=== PATIENT | male | born 1995 | race Caucasian/White ===

== ENCOUNTER → 2016-09-26 | Outpatient (CLI) | payer OTHER ==
[~2016-09-26] MED LIST: ACETAMINOPHEN325 MG GT; ACETAMINOPHEN650 M4 PEG; ACNE CLEANSING1 EACH TOP; ACNE CLEANSING1 EACH TP; ALBUTEROL MININEB NEB; ALL DAY ALLERGY10 M3 JT; ALLERCLEAR10 MG GT; AMOXICILLIN875 MG GT; AZULFIDINE GT; AZULFIDINE500 M1 GT; AZULFIDINE500 M1 PO; BACID GT; CETA-KLENZ SKI473 ML TP; CETAPHIL THERAP TOP; CLARITIN10 M2 GT; CLARITIN10 M2 PEG; CLARITIN10 M3 DOB; CLARITIN10 M3 GT; COMBIVENT U/D3 M1 INH; COUGH SYRU100 MG/5 M PO; EAC TOP; FLEET BISA10 MG/30 M PR; GABAPENTIN300 M2 GT; GABAPENTIN300 M2 PEG; GABAPENTIN300 MG PO; GAS-X125 MG PO; GENEBS325 MG GT; GERI-TUSSI100 MG/5 M GT; HYDROCODON-ACE1 EAC7 PEG; IPRAT-ALBUT 0.5-3 ML INH; IPRATR-ALBUTEROL3 ML INH; MEDIFIN EX100 MG/5 M PEG; MOBIC15 MG DOB; MONTELUKAST SOD10 MG GT; MONTELUKAST SOD10 MG JT; MONTELUKAST SOD10 MG PEG; NEURONTIN GT; NEURONTIN300 MG GT; NEURONTIN300 MG PEG; NON-ASPIRIN325 MG GT; OYSTER SHELL 501 TAB GT; OYSTER SHELL 501 TAB PEG; OYSTER SHELL 51 EACH JT; OYSTER SHELL 51 EACH PO; OYSTERCAL-D 501 EACH GT; POLYETHYLENE G527 GM PO; PROBIOTIC COMP1 EACH PEG; PROBIOTIC1 EACH GT; PROVENTIL INH0.5 ML NEB; PULMICORT0.5 MG/2 M INH; PULMICORT0.5 MG/21 INH; RISA-BID CAPLE1 EAC1 DOB; RISA-BID CAPLE1 EAC1 JT; RISA-BID CAPLE1 EAC1 PO; RISA-BID CAPLE1 EACH PO; RISAMINE OINTM113 GM TOP; ROBAFEN CF LIQ118 ML DOB; ROBAFEN100 MG/5 M PO; SINGULAIR GT; SOD BICARBONATE DOB; SULFAZINE500 M1 GT; TRAMADOL HCL50 M1 GT; TRAMADOL HCL50 M2 GT; TYL325 PO; ULTRAM PO; VICODIN 5/500 T1 TAB PO; VIOKACE 10,4401 EACH DOB; VITAMIN D 4001 UDTAB PO; VITAMIN D1000 UNI1 GT; VITAMIN D1000 UNI1 PEG; VITAMIN D1000 UNI2 GT; ZYRTEC10 M2 DOB; [UNRECOGNIZED DRUG - OTHER]; [UNRECOGNIZED DRUG - OTHER] TOP; [UNRECOGNIZED DRUG - SUPPLY] TOP
--- NOTE | ~2016-09-26 | XA176 ---
[facility] A Service of [facility] & [facility] RADIOLOGY TEXT RESULTS PATIENT: CARLOS MOREL LOCATION: [facility] : [birth year] UNIT #: [id number] AGE: [address]: Armen Adhikari MD SEX: M ORDER DR: [id number] [facility]. [place], [place] [address] [id number] O MR#: [id number] Acc #: [id number] NAME: CARLOS MOREL : 1995 SEX: M STUDY DATE/TIME: 09/26/2016 14:02 UNIT: [facility] ROOM: STUDY DESCRIPTION: XA Perc G-Tube to GJ-Tube Conv Attending Physician: Armen Adhikari Sr., M.D. Ordering Physician: Armen Adhikari Sr., M.D. Primary Care Physician: Rachel Irving Aprn MEDICAL IMAGING REPORT This report is preliminary unless electronic signature is present EXAM Gastrojejunostomy tube replacement. HISTORY Gastrojejunostomy tube fell out, was replaced with a gastrostomy tube. Replacement of the G-J tube was requested. FINDINGS Using fluoroscopic guidance, a combination of guidewires and catheter, the existing tube was removed, and a gastrojejunostomy tube was reinserted with its distal tip just beyond the ligament of Treitz. It was fixed to the skin. There were no complications, and contrast injection confirmed catheter position. A total of 5 overhead spot images were performed, and 5.7 minutes of fluoroscopy were utilized. IMPRESSION Successful reinsertion of a gastrojejunostomy tube. Distal catheter tip beyond the ligament of Treitz; confirmed fluoroscopically. Dictated by... Timmy Stewart M.D. THIS IS AN ELECTRONICALLY VERIFIED REPORT Timmy Stewart M.D. at 10/03/2016 5:09 PM KAY/lucia TD: 10/01/2016 09:17 JOB #: [id number] MEDICAL IMAGING REPORT [facility] A Service of [facility] & [facility] RADIOLOGY TEXT RESULTS PATIENT: CARLOS MOREL LOCATION: [facility] #: [id number] : [birth year] UNIT #: [id number] AGE: [address]: Armen Adhikari MD SEX: M ORDER DR: COPY
== END | disposition home or self-care (01) ==
LOC: CIVR 12:26
DX: Z93.1 Gastrostomy status (principal); F79 Unspecified intellectual disabilities; Z88.8 Allergy status to other drugs, medicaments and biological substances; J98.9 Respiratory disorder, unspecified
CPT/HCPCS: C1725; J2250; J3010; Q9967

== ENCOUNTER 2016-10-03 19:04 | Emergency (ER) | payer OTHER ==
[2016-10-03 17:27] LABS: BASOPHIL% 0.4 % (0-2.5); EOSINOPHIL# 0.1 X10e3 (0-0.7); EOSINOPHIL% 0.9 % (0.0-7.0); HEMATOCRIT 41.7 % (38.0-50.0); HEMOGLOBIN 13.5 gm/dL (13.0-16.0); LYMPHOCYTE# 1.7 X10e3 (1.0-3.5); LYMPHOCYTE% 30.7 % (17.0-45.0); MEAN CELL VOLUME 89.9 FL (83-96); MEAN CORPUSCULAR HEMOGLOBIN 29.1 PG (28-34); MEAN CORPUSCULAR HGB CONC 32.4 g/dL (30-36); MEAN PLATELET VOLUME 7.4 FL (6.5-11.5); MONOCYTE# 0.4 X10e3 (0-1.0); MONOCYTE% 7.1 % (3.0-12.0); NEUTROPHIL# 3.5 X10e3 (1.5-7.1); NEUTROPHIL% 60.9 % (40-75); PLATELET COUNT 270 X10e3 (140-420); RED BLOOD COUNT 4.64 X10e (3.90-5.60); RED CELL DISTRIBUTION WIDTH 13.8 % (11.0-15.5); WHITE BLOOD COUNT 5.7 X10e3 (4.0-10.5)
[2016-10-03 17:28] LABS: DIFF IND NO
[2016-10-03 17:59] LABS: ALKALINE PHOSPHATASE 94 U/L (32-92); ALT (SGPT) 33 U/L (10-40); AST (SGOT) 30 U/L (10-42); BILIRUBIN, DIRECT <0.1 mg/dL (0.0-0.2); BILIRUBIN,INDIRECT 0.3 mg/dL (0.0-0.9); BILIRUBIN,TOTAL 0.4 mg/dL (0.2-2.0); BLOOD UREA NITROGEN 23 mg/dL (9-23); CALCIUM SERUM 9.1 mg/dL (8.4-10.2); CARBON DIOXIDE 28 mmol/L (22-31); CHLORIDE 102 mmol/L (100-111); CREATININE SERUM 0.5 mg/dL (0.6-1.4); GLOM FILT RATE Estimated ABOVE60 mL/min (>60); GLUCOSE FASTING 86 mg/dL (70-110); LIPASE 49 U/L (22-51); PROTEIN TOTAL SERUM 7.1 g/dL (6.0-8.3); SODIUM 138 mmol/L (135-145)
[~2016-10-03 19:04] MED LIST changes: -ACNE CLEANSING1 EACH TOP; -ALBUTEROL MININEB NEB; -ALL DAY ALLERGY10 M3 JT; -AZULFIDINE500 M1 PO; -CETAPHIL THERAP TOP; -COMBIVENT U/D3 M1 INH; -EAC TOP; -FLEET BISA10 MG/30 M PR; -GABAPENTIN300 M2 GT; -GABAPENTIN300 MG PO; -GENEBS325 MG GT; -IPRATR-ALBUTEROL3 ML INH; -MONTELUKAST SOD10 MG JT; -OYSTER SHELL 51 EACH JT; -OYSTER SHELL 51 EACH PO; -OYSTERCAL-D 501 EACH GT; -PROVENTIL INH0.5 ML NEB; -PULMICORT0.5 MG/21 INH; -RISA-BID CAPLE1 EAC1 DOB; -RISA-BID CAPLE1 EAC1 JT; -RISA-BID CAPLE1 EACH PO; -RISAMINE OINTM113 GM TOP; -ROBAFEN CF LIQ118 ML DOB; -ROBAFEN100 MG/5 M PO; -SOD BICARBONATE DOB; -SULFAZINE500 M1 GT; -TYL325 PO; -VIOKACE 10,4401 EACH DOB; -ZYRTEC10 M2 DOB; -[UNRECOGNIZED DRUG - OTHER] TOP; -[UNRECOGNIZED DRUG - SUPPLY] TOP
[2016-10-03 19:37] LABS: URINE APPEARANCE CLOUDY; URINE BILIRUBIN NEG (NEG); URINE BLOOD NEG (NEG); URINE COLOR DK YELLOW; URINE GLUCOSE NEG (NEG); URINE KETONE NEG (NEG); URINE LEUKOCYTE ESTERASE TRACE (NEG); URINE NITRATE NEG (NEG); URINE PROTEIN NEG (NEG); URINE SPECIFIC GRAVITY 1.023 (1.003-1.035); URINE UROBILINOGEN 0.2 MG/DL (NEG)
[2016-10-03 19:40] LABS: CULTURE INDICATED? YES; URBCS1 AUWI 0-2 /[HPF] (0-2); URINE BACTERIA AUWI NEG (NEGATIVE); URINE SQUAMOUS EPITHELIAL CELL MANY /[HPF]
[2016-10-03 19:58] LABS: URINE SOURCE CATH
[2016-11-15] MEDS ORDERED: GABAPENTIN300 M2 GT (05:07)
[2016-11-15] MEDS ORDERED: MONTELUKAST SOD10 MG GT (05:08)
[2016-11-15] MEDS ORDERED: OYSTERCAL-D 501 EACH GT (05:09)
[2016-11-15] MEDS ORDERED: SULFAZINE500 M1 GT (05:11)
[2016-11-15] MEDS ORDERED: GENEBS325 MG GT (05:14)
[2016-11-15] MEDS ORDERED: ALBUTEROL MININEB NEB ×2 (05:16→05:17)
[2016-11-15] MEDS ORDERED: PULMICORT0.5 MG/2 M INH (05:17)
[2016-11-15] MEDS ORDERED: ACNE CLEANSING1 EACH TOP (07:58)
[2016-11-15] MEDS ORDERED: ZYRTEC10 M2 DOB (07:59)
[2016-11-15] MEDS ORDERED: RISA-BID CAPLE1 EAC1 DOB (08:00)
[2016-11-15] MEDS ORDERED: RISAMINE OINTM113 GM TOP (08:01)
[2016-11-15] MEDS ORDERED: SOD BICARBONATE DOB (08:02)
[2016-11-15] MEDS ORDERED: VIOKACE 10,4401 EACH DOB (08:04)
[2016-11-15] MEDS ORDERED: ROBAFEN CF LIQ118 ML DOB (08:05)
[2016-12-15] MEDS ORDERED: [UNRECOGNIZED DRUG - OTHER] TOP (10:11)
[2016-12-15] MEDS ORDERED: [UNRECOGNIZED DRUG - SUPPLY] TOP (10:12)
[2016-12-15] MEDS ORDERED: IPRATR-ALBUTEROL3 ML INH (10:12)
[2016-12-15] MEDS ORDERED: OYSTER SHELL 51 EACH PO (10:13)
[2016-12-15] MEDS ORDERED: RISA-BID CAPLE1 EACH PO (10:14)
[2016-12-15] MEDS ORDERED: PULMICORT0.5 MG/21 INH (10:14)
[2016-12-15] MEDS ORDERED: AZULFIDINE500 M1 PO (10:15)
[2016-12-15] MEDS ORDERED: PROVENTIL INH0.5 ML NEB (10:16)
[2017-04-14] MEDS ORDERED: TYL325 PO (15:34)
[2017-04-14] MEDS ORDERED: ALL DAY ALLERGY10 M3 JT (15:35)
[2017-04-14] MEDS ORDERED: GABAPENTIN300 MG PO (15:36)
[2017-04-14] MEDS ORDERED: MONTELUKAST SOD10 MG JT (15:37)
[2017-04-14] MEDS ORDERED: OYSTER SHELL 51 EACH JT (15:38)
[2017-04-14] MEDS ORDERED: RISA-BID CAPLE1 EAC1 JT (15:38)
[2017-04-14] MEDS ORDERED: EAC TOP (15:41)
[2017-04-14] MEDS ORDERED: CETAPHIL THERAP TOP (15:42)
[2017-04-14] MEDS ORDERED: ROBAFEN100 MG/5 M PO (15:43)
[2017-04-14] MEDS ORDERED: FLEET BISA10 MG/30 M PR (15:45)
[2017-04-14] MEDS ORDERED: COMBIVENT U/D3 M1 INH (15:47)
[2017-04-14] MEDS ORDERED: PULMICORT0.5 MG/21 INH (15:47)
== END 2016-10-03 21:10 | disposition home or self-care (01) ==
LOC: CED 19:04
PROVIDERS: Emergency Medicine
DX: R10.9 Unspecified abdominal pain (principal); Z79.2 Long term (current) use of antibiotics; Z79.899 Other long term (current) drug therapy; Z88.8 Allergy status to other drugs, medicaments and biological substances
CPT/HCPCS: 36415; 80048; 80076; 81003; 83690; 85025; 87086; 99284

== ENCOUNTER → 2016-11-15 | Outpatient (CLI) | payer OTHER ==
[~2016-11-15] MED LIST changes: +ACNE CLEANSING1 EACH TOP; +ALBUTEROL MININEB NEB; +ALL DAY ALLERGY10 M3 JT; +AZULFIDINE500 M1 PO; +CETAPHIL THERAP TOP; +COMBIVENT U/D3 M1 INH; +EAC TOP; +FLEET BISA10 MG/30 M PR; +GABAPENTIN300 M2 GT; +GABAPENTIN300 MG PO; +GENEBS325 MG GT; +IPRATR-ALBUTEROL3 ML INH; +MONTELUKAST SOD10 MG JT; +OYSTER SHELL 51 EACH JT; +OYSTER SHELL 51 EACH PO; +OYSTERCAL-D 501 EACH GT; +PROVENTIL INH0.5 ML NEB; +PULMICORT0.5 MG/21 INH; +RISA-BID CAPLE1 EAC1 DOB; +RISA-BID CAPLE1 EAC1 JT; +RISA-BID CAPLE1 EACH PO; +RISAMINE OINTM113 GM TOP; +ROBAFEN CF LIQ118 ML DOB; +ROBAFEN100 MG/5 M PO; +SOD BICARBONATE DOB; +SULFAZINE500 M1 GT; +TYL325 PO; +VANCOMYCIN750 MG/250 IV; +VIOKACE 10,4401 EACH DOB; +ZOSYN INJ; +ZYRTEC10 M2 DOB; +[UNRECOGNIZED DRUG - OTHER] TOP; +[UNRECOGNIZED DRUG - OTHER] TOP; +[UNRECOGNIZED DRUG - SUPPLY] TOP
--- NOTE | ~2016-11-15 | XA189 ---
[facility] A Service of [facility] RADIOLOGY TEXT RESULTS PATIENT: CARLOS MOREL LOCATION: [facility] : [birth year] UNIT #: [id number] AGE: [address]: RACIEL BLOCK APRN SEX: M ORDER DR: [id number] [facility] [address] [facility] [place], [place] [address] [id number] O MR#: [id number] Acc #: [id number] NAME: CARLOS MOREL : 1995 SEX: M STUDY DATE/TIME: 11/15/2016 10:26 UNIT: [facility] ROOM: STUDY DESCRIPTION: XA Replace GJ Tube Attending Physician: Raciel Block Aprn Ordering Physician: Raciel Block Aprn Primary Care Physician: Raciel Block Aprn MEDICAL IMAGING REPORT This report is preliminary unless electronic signature is present EXAM Gastrojejunostomy tube replacement with fluoroscopic guidance. HISTORY The existing tube has ruptured. TECHNIQUE Informed consent was obtained from the patient's software support representative. Using sterile technique and following the lubrication with K-Y jelly, the existing tube was withdrawn over a guidewire. An 0.035 hydrophilic glidewire was used. A new tube was placed over the wire. The gastrostomy site is directed toward the cardia of the stomach. With great difficulty, eventually the tube was directed into the duodenum and subsequently to a position near the ligament of Treitz. Total fluoroscopy time 38.6 minutes. Some oral contrast was administered throughout the procedure to guide placement. The balloon was inflated to 7 mL, and the tube was secured in place. The patient tolerated the procedure well. IMPRESSION Difficult gastrojejunostomy tube placement because of the angulation of the gastrostomy tube site relative to the duodenum. Eventually with great difficulty and a combination of multiple different wires, the tube was positioned with the tip near the ligament of Treitz. Dictated by... Harris Sosa M.D. THIS IS AN ELECTRONICALLY VERIFIED REPORT Harris Sosa M.D. at 11/15/2016 5:02 PM RLF/jaxon [facility]. [facility] A Service of [facility] RADIOLOGY TEXT RESULTS PATIENT: CARLOS MOREL LOCATION: [facility] #: [id number] : [birth year] UNIT #: [id number] AGE: [address]: RACIEL BLOCK APRN SEX: M ORDER DR: TD: 11/15/2016 16:58 JOB #: [id number] MEDICAL IMAGING REPORT Page 1 of 1 COPY
== END | disposition home or self-care (01) ==
LOC: CIVR 06:41
DX: K94.23 Gastrostomy malfunction (principal); F73 Profound intellectual disabilities; I35.1 Nonrheumatic aortic (valve) insufficiency; K51.90 Ulcerative colitis, unspecified, without complications; J41.1 Mucopurulent chronic bronchitis
CPT/HCPCS: 76000; J2250; J3010; Q9967

== ENCOUNTER → 2016-12-15 | Outpatient (CLI) | payer OTHER ==
--- NOTE | ~2016-12-15 | XA189 ---
[facility] A Service of [facility] & [facility] RADIOLOGY TEXT RESULTS PATIENT: CARLOS MOREL LOCATION: [facility] : [birth year] UNIT #: [id number] AGE: [address]: Armen Adhikari MD SEX: M ORDER DR: [id number] [place], [place] [address] [id number] O MR#: [id number] Acc #: [id number] NAME: CARLOS MOREL : 1995 SEX: M STUDY DATE/TIME: 12/15/2016 10:42 UNIT: [facility] ROOM: STUDY DESCRIPTION: XA Replace GJ Tube Attending Physician: Armen Adhikari Sr., M.D. Referring Physician: Armen Adhikari Sr., M.D. Ordering Physician: Armen Adhikari Sr., M.D. Primary Care Physician: Rachel Irving Aprn MEDICAL IMAGING REPORT This report is preliminary unless electronic signature is present EXAM J-tube replacement under fluoroscopy HISTORY Knierim-term [facility] patient with GJ feedings PROCEDURE The consent was obtained from the patient's guardian. The patient was placed in the supine position in the angio suite. The skin was prepped around the tube and viscus lidocaine was placed at the tube entry site. IV fentanyl was administered by the IR nurse and the patient monitored by the IR nurse. Under fluoroscopic control, the patient's GJ tube was removed over an 0.035 wire and a new GJ tube placed with the distal tip at the ligament of Treitz. This was injected and confirmed. Two spot radiographs were obtained. Total fluoroscopy time 2.4 minutes. Total exposure 17 mGy air kerma standard. SUMMARY Successful GJ tube replacement under fluoroscopic guidance. Dictated by... Dc Jung M.D. THIS IS AN ELECTRONICALLY VERIFIED REPORT Dc Jung M.D. at 12/16/2016 4:26 PM KEYANA/colleen TD: 12/15/2016 12:40 JOB #: [id number] [facility] A Service of [facility] & [facility] RADIOLOGY TEXT RESULTS PATIENT: CARLOS MOREL LOCATION: [facility] #: [id number] : [birth year] UNIT #: [id number] AGE: [address]: Armen Adhikari MD SEX: M ORDER DR: MEDICAL IMAGING REPORT Page 1 of 1 COPY
== END | disposition home or self-care (01) ==
LOC: CIVR 09:10
DX: K94.23 Gastrostomy malfunction (principal); Z88.8 Allergy status to other drugs, medicaments and biological substances; Z91.09 Other allergy status, other than to drugs and biological substances; Z87.09 Personal history of other diseases of the respiratory system; F79 Unspecified intellectual disabilities
CPT/HCPCS: J3010; Q9967

== ENCOUNTER → 2017-01-08 | Outpatient (CLI) | payer OTHER ==
[2017-01-08 15:39] LABS: BASOPHIL% 0.3 % (0-2.5); EOSINOPHIL% 0.9 % (0.0-7.0); HEMATOCRIT 43.4 % (38.0-50.0); HEMOGLOBIN 14.1 gm/dL (13.0-16.0); LYMPHOCYTE# 1.4 X10e3 (1.0-3.5); LYMPHOCYTE% 34.8 % (17.0-45.0); MEAN CELL VOLUME 94.4 FL (83-96); MEAN CORPUSCULAR HEMOGLOBIN 30.7 PG (28-34); MEAN CORPUSCULAR HGB CONC 32.5 g/dL (30-36); MEAN PLATELET VOLUME 7.4 FL (6.5-11.5); MONOCYTE# 0.3 X10e3 (0-1.0); MONOCYTE% 6.7 % (3.0-12.0); NEUTROPHIL# 2.3 X10e3 (1.5-7.1); NEUTROPHIL% 57.3 % (40-75); PLATELET COUNT 283 X10e3 (140-420); RED CELL DISTRIBUTION WIDTH 13.6 % (11.0-15.5); WHITE BLOOD COUNT 4.1 X10e3 (4.0-10.5)
[2017-01-08 16:14] LABS: DIFF IND NO
== END | disposition home or self-care (01) ==
LOC: CHAZ 14:26
PROVIDERS: Internal Medicine
DX: J20.9 Acute bronchitis, unspecified (principal)
CPT/HCPCS: 85025